=== PATIENT | male | born 1990 | race Caucasian/White ===

== ENCOUNTER 2020-12-17 14:54 | Emergency (ER) | payer SELFPAY ==
[2020-12-17 15:05] VITALS: BMI 26.6
[2020-12-17] MEDS ORDERED: LACTATED RINGERS SOLUTION 1000 ML INFUS.BAG IV ONE (15:54)
[2020-12-17 16:31] LABS: VENOUS BASE EXCESS -2.1 mmol/L (-2-2); VENOUS O2 SATURATION 74.5 % (70-80); VENOUS PCO2 39.5 mmHg (38-52); VENOUS PH 7.378 (7.310-7.410)
[2020-12-17 16:34] LABS: BASO % 0.6 % (0-2.0); EOS % 0.8 % (0-4.5); HEMOGLOBIN 14.5 GM/dL (11.7-16.9); LYMPH % 13.9 % (8-40); MCH 31.4 pg (25.7-33.7); MCHC 34.6 g/dl (32.0-35.9); MEAN CELL VOLUME 90.7 fl (80-96); MONO % 7.5 % (3.8-10.2); NEUT % 77.2 % (42.8-82.8); PLATELET COUNT 225 10^3/uL (134-434); RBC 4.63 M/mm3 (4.00-5.60); RDW 13.7 % (11.9-15.9); WHITE BLOOD COUNT 8.3 K/mm3 (4.0-10.0)
[2020-12-17 16:45] LABS: CHLORIDE 103 mmol/L (98-107); SODIUM 137 mmol/L (136-145)
[2020-12-17 16:47] LABS: CALCIUM 8.9 mg/dL (8.5-10.1)
[2020-12-17 16:48] LABS: ALBUMIN 3.9 g/dl (3.4-5.0); ANION GAP 8 MMOL/L (8-16); BLOOD UREA NITROGEN 15.6 mg/dL (7-18); CO2 26 mmol/L (21-32); GLUCOSE,RANDOM 273 mg/dL (74-106)
[2020-12-17 16:51] LABS: SGOT/AST 29 U/L (15-37); SGPT/ALT 60 U/L (13-61)
[2020-12-17 16:52] LABS: BILIRUBIN,TOTAL 0.3 mg/dL (0.2-1); TOT PROT 7.6 g/dl (6.4-8.2)
[2020-12-17 16:53] LABS: ALK PHOS 126 U/L (45-117)
[2020-12-17 19:04] LABS: URINE APPEARANCE CLEAR; URINE BILIRUBIN NEGATIVE (NEGATIVE); URINE COLOR YELLOW; URINE GLUCOSE (UA) 3+ (NEGATIVE); URINE KETONE NEGATIVE (NEGATIVE); URINE LEUK ESTERASE NEGATIVE (NEGATIVE); URINE NITRITE NEGATIVE (NEGATIVE); URINE PROTEIN NEGATIVE (NEGATIVE); URINE UROBILINOGEN 0.2 mg/dL (0.2-1.0)
[2020-12-17 19:48] VITALS: BP 110/68; TEMP 98.5
[2020-12-19 21:38] VITALS: PULSE 90
== END 2020-12-17 19:48 | disposition home or self-care (01) ==
LOC: JER 14:54
DX: R07.9 Chest pain, unspecified (principal); R73.9 Hyperglycemia, unspecified
CPT/HCPCS: 36415; 71046-TC-FY; 80053; 81003; 82010; 82550; 82803; 82962; 83036; 84443; 84484; 85025; 87086; 93005; 93010; 99285-25; C9803; U0003; U0005